=== PATIENT | male | born 1965 ===

== ENCOUNTER → 2021-07-01 12:44 | Outpatient (CLI) | payer OTHER ==
[~2021-07-01 12:44] MED LIST: LANTUS SOL100 UNIT/1
== END | disposition home or self-care (01) ==
LOC: LAB 12:44
PROVIDERS: ATTEND Surgery
DX: I10 Essential (primary) hypertension (principal); K50.014 Crohn's disease of small intestine with abscess; K50.013 Crohn's disease of small intestine with fistula

== ENCOUNTER 2021-07-10 12:30 | Inpatient (IN) | payer OTHER ==
[~2021-07-10] VITALS: Ht 175.3 cm; Wt 150.0 kg
[2021-07-10] MEDS ORDERED: LANTUS SOL100 UNIT/1 (15:09)
[2021-07-17] MEDS ORDERED: PREDNISONE20 M1 (13:14)
[2021-07-17] MEDS ORDERED: PANTOPRAZOLE SO40 MG (13:15)
[2021-07-27] MEDS ORDERED: ERTAPENEM1 GM IV (14:58)
== END 2021-07-29 14:53 | disposition home or self-care (01) | DRG 330 ==
LOC: O/R 07-15 07:48 → SURH 07-15 10:30 → SURG 07-15 17:24
PROVIDERS: ADMIT Surgery; ATTEND Surgery
PROC: 0D1B0Z4 Bypass Ileum to Cutaneous, Open Approach (ICD-10-PCS; 2021-07-15)
PROC: 0DQB0ZZ Repair Ileum, Open Approach (ICD-10-PCS; 2021-07-15)
PROC: 0DTE0ZZ Resection of Large Intestine, Open Approach (ICD-10-PCS; principal; 2021-07-15 10:30)
PROC: 30243N1 Transfusion of Nonautologous Red Blood Cells into Central Vein, Percutaneous Approach (ICD-10-PCS; 2021-07-17)
PROC: 02HV33Z Insertion of Infusion Device into Superior Vena Cava, Percutaneous Approach (ICD-10-PCS; 2021-07-18)
PROC: BW2110Z Computerized Tomography (CT Scan) of Abdomen and Pelvis using Low Osmolar Contrast, Unenhanced and Enhanced (ICD-10-PCS; 2021-07-18)
PROC: 0W9F3ZX Drainage of Abdominal Wall, Percutaneous Approach, Diagnostic (ICD-10-PCS; 2021-07-24)
DX: K50.014 Crohn's disease of small intestine with abscess (principal); K56.699 Other intestinal obstruction unspecified as to partial versus complete obstruction; L03.311 Cellulitis of abdominal wall; Z16.12 Extended spectrum beta lactamase (ESBL) resistance; T81.41XA Infection following a procedure, superficial incisional surgical site, initial encounter; L02.211 Cutaneous abscess of abdominal wall; K50.013 Crohn's disease of small intestine with fistula; D64.9 Anemia, unspecified; K66.0 Peritoneal adhesions (postprocedural) (postinfection); D72.828 Other elevated white blood cell count; Y83.8 Other surgical procedures as the cause of abnormal reaction of the patient, or of later complication, without mention of misadventure at the time of the procedure; Y92.230 Patient room in hospital as the place of occurrence of the external cause; B96.1 Klebsiella pneumoniae [K. pneumoniae] as the cause of diseases classified elsewhere